=== PATIENT | male | born 1970 | race Caucasian/White ===

== ENCOUNTER 2024-04-28 09:55 | Outpatient (CLI) | payer MEDICAID ==
[~2024-04-28 09:55] MED LIST: COU7.5T PO; FOLI-43 PO; THI100T PO
[2024-04-28 10:14] LABS: TOTAL HEMOGLOBIN 16.1 G/dl (14.0-17.9)
[2024-04-28] MEDS: albuterol 2.5 MG/3 ML nebule NEB ONE (10:49)
[2024-04-28 10:52] VITALS: PULSE 68; RESP 17; O2SAT 98
[2024-04-28 11:21] VITALS: PULSE 70; RESP 16
== END 2024-04-28 23:59 | disposition home or self-care (01) ==
LOC: RT 09:55
PROVIDERS: ATTEND Internal Medicine Pulmonary Disease
DX: J44.9 Chronic obstructive pulmonary disease, unspecified (principal)
CPT/HCPCS: 85018; 94060; 94727; 94729; 94760; J7030; A4340; A6590; C1758